=== PATIENT | male | born 1995 | race African-American/Black ===

== ENCOUNTER 2016-11-22 22:45 | Emergency (ER) | payer OTHER ==
[~2016-11-22] VITALS: Ht 182.9 cm; Wt 99.8 kg
[2016-11-22 23:30] LABS: BILIRUBIN,URINE NEGATIVE (NEG); GLUCOSE,URINE NEGATIVE (NEG); NITRITE,URINE NEGATIVE (NEG); PH,URINE 8.5; PROTEIN,URINE NEGATIVE (NEG-TRACE)
[2016-11-22] MEDS ORDERED: IV NORMAL SALINE 1000ML BAG 1,000 ML IV SCH (23:30)
[2016-11-22] MEDS ORDERED: KETOROLAC TROMETHAMINE 30 MG/ML INJ. IV ONE (23:30)
[2016-11-22 23:37] LABS: BACTERIA,URINE 0 /HPF (0-FEW); RBC,URINE OCC /HPF (0-2); SQUAMOUS EPITHELIAL CELL,UR OCC /LPF; WBC,URINE 0 /HPF (0-4)
[2016-11-22 23:45] LABS: NEGATIVE OBC MONO NEG; POSITIVE OBC MONO POS
[2016-11-22 23:52] LABS: CALCIUM 9.3 mg/dL (8.5-10.1); CREATININE 1.3 mg/dL (0.7-1.3); GFR 84.3; POTASSIUM 4.1 mmol/L (3.5-5.1)
[2016-11-22 23:53] LABS: BASO % 1 % (0-3); EOS % 2 % (0-3); HEMATOCRIT 45.9 % (39.0-53.0); HEMOGLOBIN 16.4 g/dL (13.0-17.5); LYMPH # 1.6 x10^3/uL (1.0-4.8); LYMPH % 32 % (24-48); MEAN CORPUSCULAR HEMOGLOBIN 31 pg (25-35); MEAN CORPUSCULAR HGB CONC 36 g/dL (31-37); MEAN CORPUSCULAR VOLUME 87 fL (79-100); MONO % 14 % (0-9); NEUT % 52 % (31-73); PLATELET COUNT 233 x10^3/uL (140-400); RED BLOOD COUNT 5.28 x10^6/uL (4.30-5.70); RED CELL DISTRIBUTION WIDTH 13.6 % (11.5-14.5); WHITE BLOOD COUNT 5.1 x10^3/uL (4.0-11.0)
[2016-11-22 23:58] LABS: ALBUMIN 4.2 g/dL (3.4-5.0); TOTAL BILIRUBIN 0.5 mg/dL (0.2-1.0); TOTAL PROTEIN 8.6 g/dL (6.4-8.2)
[2016-11-23] VITALS: BP 137/78
--- NOTE | 2016-11-23 00:09 | PHYS DOC ---
Past Medical History Past Medical History: Asthma Past Surgical History: No Surgical History Alcohol Use: None Drug Use: None Adult General Chief Complaint Chief Complaint: WEAKNESS/GENERALIZED HPI HPI Patient is a 21 year old male brought to the ED by multiple family members with multiple complaints. For about a week, the patient has been feeling "extremely drained". He has felt cold at times and has had some chills mostly today. He feels weak and achy. He has taken Tylenol and ibuprofen with some relief. He also notes a swollen, tender lump on the right side of his neck which she has noticed for about a week. He denies sore throat. He denies fever. The patient works doing heavy lifting and hot environment area, he thinks he might be dehydrated.. He has been doing this work since July but it only recently has been very hot. Patient has no chronic medical problems. PCP Dr. Brooks Review of Systems Review of Systems Constitutional: Denies fever but he has had chills off and on Eyes: Denies change in visual acuity, redness, or eye pain [] HENT: Denies nasal congestion or sore throat [] Respiratory: Denies cough or shortness of breath [] Cardiovascular: Denies chest pain GI: Denies abdominal pain, nausea, vomiting, bloody stools or diarrhea [] : His urine has been dark in color Musculoskeletal: Denies back pain or joint pain [] Integument: Denies rash or skin lesions [] Neurologic: Denies headache, focal weakness or sensory changes [] Current Medications Current Medications Current Medications Medications (Trade) Dose Ordered Sig/[place] Start Time Stop Time Status Last Admin Dose Admin Ketorolac Tromethamine (Toradol) 30 mg 1X ONCE 11/22/16 23:30 11/22/16 23:31 DC 11/22/16 23:30 30 MG Sodium Chloride 1,000 ml @ 1,000 mls/hr Q1H 11/22/16 23:30 11/23/16 00:29 11/22/16 23:30 1,000 MLS/HR Allergies Allergies Allergies Coded Allergies Type Severity Reaction Last Updated Verified tree nut Allergy Intermediate 11/22/16 Yes Physical Exam Physical Exam Constitutional: Well developed, well nourished, no acute distress, non-toxic appearance. Alert, mentating normally, appears healthy. HENT: Normocephalic, atraumatic, bilateral external ears normal, oropharynx moist, no oral exudates, oropharynx without redness, tonsils not enlarged, not red, no exudates, nose normal. [] Eyes: conjunctiva normal, no discharge. [] Neck: Normal range of motion, no tenderness, supple, no stridor. Small tender lymph node on the right anterior cervical chain. Cardiovascular:Heart rate regular rhythm, no murmur [] Lungs & Thorax: Bilateral breath sounds clear to auscultation [] Abdomen: Bowel sounds normal, soft, no tenderness, no masses, no pulsatile masses. [] Skin: Warm, dry, no erythema, no rash. [] Extremities: No tenderness, no cyanosis, no clubbing, ROM intact, no edema. [] Neurologic: Alert and oriented X 3, normal motor function, normal sensory function, no focal deficits noted. [] Current Patient Data Vital Signs Vital Signs Date Time Temp Pulse Resp B/P (MAP) Pulse Ox O2 Delivery O2 Flow Rate FiO2 11/22/16 23:00 98.7 92 24 148/80 (102) 99 Room Air 98.7 Lab Values Laboratory Tests Test 11/22/16 23:05 11/22/16 23:23 Urine Collection Type Unknown Urine Color Yellow Urine Clarity Clear Urine pH 8.5 Urine Specific [place] 1.025 Urine Protein Negative mg/dL (NEG-TRACE) Urine Glucose (UA) Negative mg/dL (NEG) Urine Ketones (Stick) Negative mg/dL (NEG) Urine Blood Negative (NEG) Urine Nitrite Negative (NEG) Urine Bilirubin Negative (NEG) Urine Urobilinogen Dipstick 1.0 mg/dL (0.2 mg/dL) Urine Leukocyte Esterase Negative (NEG) Urine RBC Occ /HPF (0-2) Urine WBC 0 /HPF (0-4) Urine Squamous Epithelial Cells Occ /LPF Urine Bacteria 0 /HPF (0-FEW) Urine Mucus Slight /LPF White Blood Count 5.1 x10^3/uL (4.0-11.0) Red Blood Count 5.28 x10^6/uL (4.30-5.70) Hemoglobin 16.4 g/dL (13.0-17.5) Hematocrit 45.9 % (39.0-53.0) Mean Corpuscular Volume 87 fL (79-100) Mean Corpuscular Hemoglobin 31 pg (25-35) Mean Corpuscular Hemoglobin Concent 36 g/dL (31-37) Red Cell Distribution Width 13.6 % (11.5-14.5) Platelet Count 233 x10^3/uL (140-400) Neutrophils (%) (Auto) 52 % (31-73) Lymphocytes (%) (Auto) 32 % (24-48) Monocytes (%) (Auto) 14 % (0-9) H Eosinophils (%) (Auto) 2 % (0-3) Basophils (%) (Auto) 1 % (0-3) Neutrophils # (Auto) 2.6 x10^3uL (1.8-7.7) Lymphocytes # (Auto) 1.6 x10^3/uL (1.0-4.8) Monocytes # (Auto) 0.7 x10^3/uL (0.0-1.1) Eosinophils # (Auto) 0.1 x10^3/uL (0.0-0.7) Basophils # (Auto) 0.0 x10^3/uL (0.0-0.2) Sodium Level 137 mmol/L (136-145) Potassium Level 4.1 mmol/L (3.5-5.1) Chloride Level 102 mmol/L (98-107) Carbon Dioxide Level 25 mmol/L (21-32) Anion Gap 10 (6-14) Blood Urea Nitrogen 13 mg/dL (8-26) Creatinine 1.3 mg/dL (0.7-1.3) Estimated GFR (Cockcroft-Gault) 84.3 BUN/Creatinine Ratio 10 (6-20) Glucose Level 81 mg/dL (70-99) Calcium Level 9.3 mg/dL (8.5-10.1) Total Bilirubin 0.5 mg/dL (0.2-1.0) Aspartate Amino Transferase (AST) 35 U/L (15-37) Alanine Aminotransferase (ALT) 34 U/L (16-63) Alkaline Phosphatase 72 U/L (46-116) Creatine Kinase 494 U/L (39-308) H Total Protein 8.6 g/dL (6.4-8.2) H Albumin 4.2 g/dL (3.4-5.0) Albumin/Globulin Ratio 1.0 (1.0-1.7) Heterophil Agglutinins Negative (NEGATIVE) Laboratory Tests 11/22/16 23:23 Laboratory Tests 11/22/16 23:23 EKG EKG [] Radiology/Procedures Radiology/Procedures [] Course & Med Decision Making Course & Med Decision Making Pertinent Labs and Imaging studies reviewed. (See chart for details) 21-year-old male with multiple complaints. He was given a liter of IV fluids and some IV Toradol. He felt much better and took a nap. Labs significant for concentrated urine without being positive for blood, moderately elevated CPK without evidence of rhabdo, other labs unremarkable. I feel the symptoms are most likely explained by viral syndrome and/or dehydration. He was given a liter of fluids here. I stressed the importance of hydration. See instructions for plan. [] Dragon Disclaimer Dragon Disclaimer This electronic medical record was generated, in whole or in part, using a voice recognition dictation system. Departure Departure Impression: Primary Impression: Malaise and fatigue Additional Impressions: Myalgia Viral syndrome Disposition: HOME, SELF-CARE Condition: IMPROVED Referrals: NON,STAFF (PCP) Patient Instructions: Myalgia, Adult Additional Instructions: Labs in the emergency department today were mostly normal but did indicate a possible virus and some mild dehydration. You were given a liter of IV fluids. It's important to hydrate 24 hours a day when you work hard in the heat. Make sure you're hydrating before, during, and after your shifts at work. You can tell that you are well hydrated if your urine is light yellow in color like lemonade. Also you should be urinating every 1-2 hours which indicates that your body has plenty of fluid. Rest until symptoms are better, it is likely that you have a virus, ibuprofen 800 mg every 6-8 hours for muscle aches and other viral symptoms as discussed. If not improving in 5-7 days, or if worse, follow-up with your physician. Problem Qualifiers AKIRA HSU MD Nov 23, 2016 00:09
== END 2016-11-23 00:31 | disposition home or self-care (01) ==
LOC: ER 22:45
DX: R53.81 Other malaise (principal); R53.83 Other fatigue; M79.1 Myalgia; R53.1 Weakness; B34.9 Viral infection, unspecified; R74.8 Abnormal levels of other serum enzymes; J45.909 Unspecified asthma, uncomplicated; Z91.018 Allergy to other foods
CPT/HCPCS: 36415; 80053; 81001; 82550; 85027; 86308; 96361; 96374; 99284; J1885; J7030